=== PATIENT | male | born 1990 | race Caucasian/White ===

== ENCOUNTER 2018-05-29 09:56 | Emergency (ER) | payer OTHER ==
[~2018-05-29] VITALS: Ht 182.9 cm; Wt 142.9 kg
[2018-05-29 10:05] VITALS: BP 160/85
--- NOTE | 2018-05-29 10:15 | NUR ---
PT. CAME INTO THE ED DUE TO R ANKLE PAIN X 5 DAYS. PT. IS AWAKE AND ALERT , RR EVEN AND UNLABORED. PT. HAS 6/10 PAIN IN R ANKLE THAT IS DESCRIBED SHARP AND RADIATING TO FOOT. SWELLING IS NOTED TO R FOOT. NO BRUSING NOTED AT THIS TIME. PT. STATES " I WAS DANCING SATURDAY NIGHT AND I TWIST MY ANKLE AND IT HAS BEEN HURTING EVER SINCE I HAVE HURT MY ACHILLES TENDON BEFORE SO WANT TO GET IT CHECKED OUT". CAP REFILL LESS THAN 3 SEC. SENSATION INTACT. ABLE TO BEAR WEIGHT ON FOOT AT THIS TIME. ER MD NOTIFIED. WILL CONTINUE TO MONITOR. SAFETY PRECAUTIONS INITIATED.
--- NOTE | 2018-05-29 11:00 | NUR ---
PT. RESTING COMFORTABLY IN BED, RR EVEN AND UNLABORED. BED IN LOWEST POSITION. WILL COTINUE TO MONITOR.
[2018-05-29 11:44] VITALS: BP 154/80
== END 2018-05-29 11:44 | disposition home or self-care (01) ==
LOC: MED 09:56
DX: S93.401A Sprain of unspecified ligament of right ankle, initial encounter (principal); X58.XXXA Exposure to other specified factors, initial encounter; Y93.89 Activity, other specified; Y92.89 Other specified places as the place of occurrence of the external cause; Y99.8 Other external cause status
CPT/HCPCS: 29515; 73610; 73630; 99284; Q0092